=== PATIENT | male | born 1990 | race African-American/Black ===

== ENCOUNTER 2023-03-02 09:08 | Emergency (ER) | payer SELFPAY ==
[~2023-03-02] VITALS: Ht 175.3 cm; Wt 63.5 kg
[2023-03-02] MEDS ORDERED: SODIUM CHLORIDE 0.9% 1000ML 1,000 ML ONE (09:22)
[2023-03-02] MEDS ORDERED: FAMOTIDINE 20 MG/2 ML VIAL IV ONE (09:22)
[2023-03-02] MEDS ORDERED: ONDANSETRON HCL INJ 2MG/ML 2ML 2 MG/ML VIAL ONE (09:22)
[2023-03-02] MEDS ORDERED: KETOROLAC TROMETHAMINE 30 MG/ML VIAL ONE (09:22)
[2023-03-02] MEDS ORDERED: KETOROLAC TROMETHAMINE 30 MG/ML VIAL IV STA (09:38)
[2023-03-02] MEDS ORDERED: FAMOTIDINE 20 MG/2 ML VIAL IV STA (09:38)
[2023-03-02] MEDS ORDERED: ONDANSETRON HCL INJ 2MG/ML 2ML 2 MG/ML VIAL IV STA (09:38)
[2023-03-02] MEDS ORDERED: SODIUM CHLORIDE 0.9% 1000ML 1,000 ML IV ONE (09:45)
[2023-03-02] MEDS ORDERED: SODIUM CHLORIDE 0.9% 1000ML 1,000 ML IV SCH (10:15)
[2023-03-02] MEDS ORDERED: ONDANSETRON ODT4 MG PO (11:49)
[2023-03-02] MEDS ORDERED: FAMOTIDINE40 MG PO (11:57)
[2023-03-02 12:21] VITALS: BP 114/72; PULSE 68; RESP 18; TEMP 99.5; O2SAT 99
== END 2023-03-02 12:22 | disposition home or self-care (01) ==
LOC: FSED 09:14
DX: R11.2 Nausea with vomiting, unspecified (principal); K52.9 Noninfective gastroenteritis and colitis, unspecified; B34.9 Viral infection, unspecified; Z20.822 Contact with and (suspected) exposure to COVID-19
CPT/HCPCS: 0223U; 80048; 80076; 81003; 83518; 85025; 87400; 96374; 96375; 96376; 99283; J1885; J2405; J7030